=== PATIENT | female | born 1955 | race Caucasian/White ===

== ENCOUNTER 2016-05-15 07:57 | Outpatient (CLI) | payer BC, OTHER ==
[2016-05-15] MEDS ORDERED: BARIUM SULFATE 450 ML ORAL.SUSP ONE (08:26)
[2016-05-15 08:32] LABS: BASOPHILS % (AUTO) 0.6 % (0.0-2.0); EOSINOPHILS # (AUTO) 0.3 K/uL (0.0-0.7); EOSINOPHILS % (AUTO) 3.9 % (0.0-7.0); HEMATOCRIT 41.1 % (37.0-47.0); HEMOGLOBIN 13.7 g/dL (12.0-16.0); LYMPHOCYTES # (AUTO) 2.2 K/uL (0.8-4.8); LYMPHOCYTES % (AUTO) 31.5 % (20.5-51.5); MEAN CORPUSCULAR HEMOGLOBIN 28.1 uug (27.0-31.0); MEAN CORPUSCULAR HGB CONC 34 g/dL (32.0-37.0); MEAN CORPUSCULAR VOLUME 83.8 fL (81.0-99.0); MONOCYTES # (AUTO) 0.5 K/uL (0.1-1.30); NEUTROPHILS # (AUTO) 3.9 K/uL (1.8-8.9); PLATELET COUNT (AUTO) 173 K/uL (150-450); RED CELL DISTRIBUTION WIDTH 12.6 % (11.5-14.5); WHITE BLOOD COUNT (AUTO) 6.9 K/uL (4.0-11.2)
[2016-05-15] MEDS ORDERED: IOHEXOL 300MG/ML 100 ML INFUS..BTL ONE (08:37)
[2016-05-15] MEDS ORDERED: IV NORMAL SALINE 250 ML IV ONE (08:38)
[2016-05-15 08:45] LABS: ALBUMIN 3.9 g/dL (3.4-5.0); BILIRUBIN,TOTAL 0.7 mg/dL (0.2-1.0); CALCIUM 8.8 mg/dL (8.5-10.1); CREATININE 0.9 mg/dL (0.6-1.3); POTASSIUM 3.9 mmol/L (3.5-5.1); TOTAL PROTEIN, SERUM 7.5 g/dL (6.4-8.2)
== END 2016-05-15 23:59 | disposition home or self-care (01) ==
LOC: LAB 07:57
PROVIDERS: ATTEND Family Medicine
DX: N28.1 Cyst of kidney, acquired (principal); K86.89 Other specified diseases of pancreas
CPT/HCPCS: 36415; 74178; 80053; 82150; 83690; 85025; J7050; Q9951; Q9967

== ENCOUNTER 2016-05-28 08:22 | Outpatient (CLI) | payer BC, OTHER | END 2016-05-28 23:59 | disposition home or self-care (01) | LOC: US 08:22 | PROVIDERS: ATTEND Family Medicine | DX: R19.00 Intra-abdominal and pelvic swelling, mass and lump, unspecified site (principal); Z90.710 Acquired absence of both cervix and uterus | CPT/HCPCS: 76856 ==

== ENCOUNTER 2016-06-25 20:15 | Inpatient (IN) | payer BC, OTHER ==
[~2016-06-25] VITALS: Ht 165.1 cm; Wt 79.4 kg
--- NOTE | 2016-06-25 20:33 | NUR ---
PATIENT C/O ABDOMINAL PAIN RADIATING TO BACK WITH CP AND FEVER WITH N/V THAT STARTED 4 DAYS AGO, PT REPORTS SHE RETURNED FROM [facility] 1 WEEK AGO. PT IS ALERT, ORIENTED X 4, NO RESP DISTRESS NOTED OR REPORTED UPON ASSESSMENT... MD AT BEDSIDE...
[2016-06-25] MEDS ORDERED: CEFTRIAXONE 1 G in IV DEXTROSE 5% 50 ML IV ONE (21:00)
[2016-06-25] MEDS ORDERED: MORPHINE SULFATE 2 MG/1 ML DISP.SYRIN IV ONE (21:00)
[2016-06-25] MEDS ORDERED: DOXYCYCLINE HYCLATE IV 100 MG in IV DEXTROSE 5% 250 ML IV ONE (21:00)
[2016-06-25] MEDS ORDERED: ONDANSETRON 4 MG/2 ML VIAL IV ONE (21:00)
[2016-06-25 21:02] LABS: *BILIRUBIN,URIN NEGATIVE (NEGATIVE); *BLOOD, URINE 2+ (NEGATIVE); *COLOR,URINE YELLOW (YELLOW); *KETONES,URINE NEGATIVE (NEGATIVE); *PROTEIN,URINE NEGATIVE (NEGATIVE); *UROBILINOGEN,URINE 0.2 E.U./dl (NORMAL); LEUKOCYTE ESTERASE ,URINE 1+ (NEGATIVE); NITRITE, URINE NEGATIVE (NEGATIVE); UGLUCOSE NEGATIVE (NEGATIVE)
[2016-06-25 21:09] LABS: *CLARITY,URINE SLIGHTLY HAZY (CLEAR)
[2016-06-25 21:10] LABS: BACTERIA,URINE FEW /HPF (NONE SEEN); SQUAMOUS EPITHELIAL CELL,UR MODERATE /HPF (NONE SEEN)
[2016-06-25 21:16] LABS: CREATININE 0.9 mg/dL (0.6-1.3); POTASSIUM 3.3 mmol/L (3.5-5.1)
[2016-06-25] MEDS ORDERED: ONDANSETRON 4 MG/2 ML VIAL ONE (21:16)
[2016-06-25] MEDS ORDERED: MORPHINE SULFATE 4 MG/1 ML DISP.SYRIN ONE (21:16)
[2016-06-25 21:17] LABS: BASOPHILS % (AUTO) 1.2 % (0.0-2.0); EOSINOPHILS % (AUTO) 0.3 % (0.0-7.0); HEMATOCRIT 42.1 % (37-47); HEMOGLOBIN 13.7 G/DL (12.0-16.0); LYMPHOCYTES # (AUTO) 1.2 K/UL (0.8-4.8); LYMPHOCYTES % (AUTO) 30.4 % (20.5-51.5); MEAN CORPUSCULAR HEMOGLOBIN 27.5 UUG (27.0-31.0); MEAN CORPUSCULAR HGB CONC 33 g/dL (32.0-37.0); MEAN CORPUSCULAR VOLUME 84.5 FL (81.0-99.0); MONOCYTES # (AUTO) 0.5 K/UL (0.1-1.30); MONOCYTES % (AUTO) 13.3 % (0.0-11.0); NEUTROPHILS # (AUTO) 2.1 K/UL (1.8-8.9); NEUTROPHILS % (AUTO) 54.8 % (38.5-71.5); PLATELET COUNT (AUTO) 168 K/UL (150-450); RED BLOOD CELL COUNT(AUTO) 4.99 MIL/UL (4.2-5.4); RED CELL DISTRIBUTION WIDTH 12.5 % (11.5-14.5); WHITE BLOOD COUNT (AUTO) 3.8 K/UL (4.0-11.2)
[2016-06-25] MEDS ORDERED: CEFTRIAXONE 1 G VIAL ONE (21:17)
--- NOTE | 2016-06-25 21:19 | NUR ---
TRAIN RESERVATION CLERK AT BEDSIDE, TO TAKE PT FOR SCAN VIA GURNEY, NO RESP DISTRESS NOTED OR REPORTED UPON ASSESSMENT... SON AT SIDE...
[2016-06-25 21:24] LABS: TROPONIN I < 0.017 ng/mL (0.00-0.056)
[2016-06-25] MEDS ORDERED: IV NORMAL SALINE 1000 ML BAG IV ONE (21:30)
[2016-06-25 21:32] LABS: LACTIC ACID 0.7 mmol/L (0.4-2.0)
[2016-06-25 21:33] LABS: ALBUMIN 3.5 g/dL (3.4-5.0); BILIRUBIN,DIRECT 0.1 mg/dL (0.0-0.2); BILIRUBIN,TOTAL 0.3 mg/dL (0.2-1.0); TOTAL PROTEIN, SERUM 7.2 g/dL (6.4-8.2)
[2016-06-25] MEDS ORDERED: HYDROMORPHONE 1 MG/1 ML DISP.SYRIN IV ONE (23:00)
[2016-06-25] MEDS ORDERED: DOXYCYCLINE HYCLATE 100 MG INJ IV ONE (23:08)
[2016-06-25] MEDS ORDERED: HYDROMORPHONE 1 MG/1 ML DISP.SYRIN ONE (23:40)
[2016-06-25] MEDS ORDERED: ASPI-605 PO (23:44)
[2016-06-25] MEDS ORDERED: TRAM50TA2 PO (23:44)
[2016-06-25] MEDS ORDERED: [UNRECOGNIZED DRUG - REMARK] PO (23:44)
[2016-06-26] MEDS ORDERED: ATOR10TA PO (00:10)
[2016-06-26] MEDS ORDERED: IV NS 1000 ML 1,000 ML IV PRN (01:11)
[2016-06-26] MEDS ORDERED: MAGNESIUM HYDROXIDE 30 ML LIQUID UDC PO PRN (01:15)
[2016-06-26] MEDS ORDERED: CEFTRIAXONE 1 G in IV DEXTROSE 5% 50 ML IV SCH (01:15)
[2016-06-26] MEDS ORDERED: Z GUARD REMEDY PASTE 57 GM TUBE TOP PRN (01:15)
[2016-06-26] MEDS ORDERED: ACETAMINOPHEN 325 MG TABLET PO PRN (01:15)
--- NOTE | 2016-06-26 01:26 | NUR ---
Pt. admitted to [facility] , under care of Dr. Claire, [place] List completed, pt alert, oriented x 4, no resp distress noted or reported upon transfer assessment... pt transferred via gurney....
[2016-06-26 01:54] VITALS: BP 107/71
--- NOTE | 2016-06-26 02:00 | NUR ---
RECEIVED PT FROM ER BIB STAFF. PT ALERT AND ORIENTEDX4, IN NO ACUTE DISTRESS. ABLE TO MAKE NEEDS KNOWN. C/O UPPER & LOWER ABDOMINAL PAIN 6/10, TOLERABLE AT THIS TIME PER PT'S REPORT. UNABLE TO AMBULATE AT THIS TIME, PER PT IT INCREASES PAIN LEVEL. IV TO R AC INTACT AND PATENT. NO SOB NOTED/REPORTED. MADE COMFORTABLE. VS STABLE. ALL NEEDS MET AT THIS TIME. CALL LIGHT WITHIN REACH AND SAFETY MEASURES IN PLACE. WILL CONTINUE TO MONITOR.
[2016-06-26] MEDS: IV NS 1000 ML 1,000 ML IV PRN ×3 (02:17→22:57)
[2016-06-26 04:00] VITALS: BP 92/52
[2016-06-26] MEDS: ONDANSETRON 4 MG/2 ML VIAL IV PRN ×2 (05:36→11:15)
[2016-06-26] MEDS: HYDROCODONE/APAP 5-325MG TABLET PO PRN (05:37)
[2016-06-26] MEDS ORDERED: HYDROCODONE/APAP 5-325MG TABLET ONE (05:38)
[2016-06-26] MEDS ORDERED: ONDANSETRON 4 MG/2 ML VIAL ONE (05:39)
--- NOTE | 2016-06-26 05:42 | NUR ---
PT C/O ABD PAIN AND NAUSEA, PRN ZOFRAN AND NORCO GIVEN PER REQUEST PRESCRIBED, REMOVED FROM PYXUS BY COMPOSITION FLOOR LAYER, SEE eMAR. WILL REASSESS. WILL CONTINUE MONITORING.
--- NOTE | 2016-06-26 08:00 | NUR ---
Awake, complaining still with abdominal pain and nausea. IVF infusing
[2016-06-26] MEDS: PANTOPRAZOLE SODIUM 40 MG TABLET.DR PO SCH (08:21)
--- NOTE | 2016-06-26 12:00 | NUR ---
With intermittent nausea. Zofran IV given. Not tolerating diet. will change to diet as tolerated
[2016-06-26 12:06] VITALS: BP 102/62
[2016-06-26] MEDS ORDERED: PANT40TA2 PO (16:07)
[2016-06-26 16:08] VITALS: BP 119/75
--- NOTE | 2016-06-26 16:27 | NUR ---
Diet change to full liquid per patient's request. Dr. Jan lyon
--- NOTE | 2016-06-26 18:21 | NUR ---
Sleeping most of the time. IVF infusing. Full liquid diet served
[2016-06-26 20:00] VITALS: BP 110/64
[2016-06-26] MEDS: CEFTRIAXONE 1 G in IV DEXTROSE 5% 50 ML IV SCH (20:23)
--- NOTE | 2016-06-26 20:30 | NUR ---
TEMP RECHECKED 99.6. WILL CONTINUE TO PROVIDE COOLING MEASURES
--- NOTE | 2016-06-26 23:05 | NUR ---
PATIENT IN BED WITH FAMILY MEMBER AT BEDSIDE. NO ACUTE DISTRESS NOTED. ABLE TO MAKE NEEDS KNOWN. NOTED ELEVATED TEMP 101.7. COOLING MEASURES PROVIDED. WILL ADMINISTER TYLENOL ORDERED. KEPT COMFORTABLE. CALL LIGHT WITHIN REACH. WILL CONTINUE TO MONITOR Addendum: 06/26/16 at 2307 by GUSTAVO MARTINO RN WRONG TIME ACTUAL TIME: 1929
[2016-06-27 04:47] VITALS: BP 103/65
--- NOTE | 2016-06-27 06:20 | NUR ---
SLEPT INTERMITTENTLY DURING THE SHIFT. AFEBRILE. NO ACUTE DISTRESS NOTED. ALL DUE MEDS GIVEN ORDERED. NEEDS ATTENDED. KEPT COMFORTABLE AT ALL TIMES. CALL LIGHT WITHIN REACH
[2016-06-27] MEDS: PANTOPRAZOLE SODIUM 40 MG TABLET.DR PO SCH (06:30)
[2016-06-27 07:43] LABS: BASOPHILS % (AUTO) 0.5 % (0.0-2.0); EOSINOPHILS # (AUTO) 0.1 K/uL (0.0-0.7); EOSINOPHILS % (AUTO) 2.5 % (0.0-7.0); HEMATOCRIT 37.5 % (37-47); HEMOGLOBIN 12.8 G/DL (12.0-16.0); LYMPHOCYTES # (AUTO) 1.1 K/UL (0.8-4.8); LYMPHOCYTES % (AUTO) 36.4 % (20.5-51.5); MEAN CORPUSCULAR HEMOGLOBIN 28.6 UUG (27.0-31.0); MEAN CORPUSCULAR HGB CONC 34 g/dL (32.0-37.0); MONOCYTES # (AUTO) 0.6 K/UL (0.1-1.30); NEUTROPHILS # (AUTO) 1.2 K/UL (1.8-8.9); NEUTROPHILS % (AUTO) 40.6 % (38.5-71.5); PLATELET COUNT (AUTO) 89 K/UL (150-450); RED BLOOD CELL COUNT(AUTO) 4.47 MIL/UL (4.2-5.4); RED CELL DISTRIBUTION WIDTH 12.6 % (11.5-14.5)
[2016-06-27 07:52] LABS: ALBUMIN 2.8 g/dL (3.4-5.0); BILIRUBIN,TOTAL 0.2 mg/dL (0.2-1.0); CALCIUM 7.6 mg/dL (8.5-10.1); CREATININE 0.8 mg/dL (0.6-1.3); MAGNESIUM 1.8 mg/dL (1.8-2.4); PHOSPHOROUS 2.9 mg/dL (2.5-4.9); POTASSIUM 3.7 mmol/L (3.5-5.1); TOTAL PROTEIN, SERUM 6.1 g/dL (6.4-8.2)
[2016-06-27] MEDS: IV NS 1000 ML 1,000 ML IV PRN ×2 (09:10→16:54)
[2016-06-27 09:18] LABS: BAND % (MANUAL) 12 % (0-10); NEUTROPHILS % (MANUAL) 29 % (42-75)
[2016-06-27 09:19] LABS: BLASTS, MANUAL % 11 % (0-0); LYMPHOCYTES % (MANUAL) 35 % (20-40); MONOCYTES % (MANUAL) 13 % (2-10)
[2016-06-27 09:20] LABS: PLATELET ESTIMATE DECREASED
[2016-06-27 11:46] VITALS: BP 124/69
[2016-06-27] MEDS: HYDROCODONE/APAP 5-325MG TABLET PO PRN (15:24)
[2016-06-27 15:30] VITALS: BP 111/63
--- NOTE | 2016-06-27 18:07 | NUR ---
patient alert and ambulatory. stable condition. able to swallow meds no sign of nausea and vomiting. no pain presented. continue to monitor.
[2016-06-27 20:00] VITALS: BP 131/80
--- NOTE | 2016-06-27 20:00 | NUR ---
RECEIVED PATIENT AWAKE IN BED WITH AT BEDSIDE. PATIENT IS A/O X4. C/O MILD DISCOMFORT IN ABDOMEN BUT REFUSED THE NEED FOR ANY PAIN MEDICATION AT THIS TIME. VSS. IVF INFUSING WELL TO RIGHT AC #20 GAUGE. NO RESP. DISTRESS NOTED. DENIES ANY N/V. CALL LIGHT IN REACH. ALL NEEDS ATTENDED. WILL CONTINUE TO MONITOR.
[2016-06-27] MEDS: CEFTRIAXONE 1 G in IV DEXTROSE 5% 50 ML IV SCH (21:02)
[2016-06-28] MEDS: IV NS 1000 ML 1,000 ML IV PRN ×2 (03:45→17:09)
[2016-06-28 04:29] VITALS: BP 121/77
[2016-06-28] MEDS: PANTOPRAZOLE SODIUM 40 MG TABLET.DR PO SCH (06:28)
[2016-06-28] MEDS: HYDROCODONE/APAP 5-325MG TABLET PO PRN (06:35)
--- NOTE | 2016-06-28 06:35 | NUR ---
PATIENT AWAKE IN BED. C/O PAIN. PATIENT GIVEN NORCO 1 TAB PO PRN FOR PAIN. IVF INFUSING WELL. VSS. SLEPT WELL THROUGHOUT THE NIGHT. CALL LIGHT IN REACH. ALL NEEDS ATTENDED. WILL CONTINUE TO MONITOR.
[2016-06-28 06:55] LABS: BASOPHILS % (AUTO) 0.1 % (0.0-2.0); EOSINOPHILS # (AUTO) 0.1 K/uL (0.0-0.7); EOSINOPHILS % (AUTO) 3.4 % (0.0-7.0); HEMATOCRIT 41.3 % (37-47); HEMOGLOBIN 13.5 G/DL (12.0-16.0); LYMPHOCYTES # (AUTO) 1.6 K/UL (0.8-4.8); MEAN CORPUSCULAR HEMOGLOBIN 27.7 UUG (27.0-31.0); MEAN CORPUSCULAR HGB CONC 33 g/dL (32.0-37.0); MEAN CORPUSCULAR VOLUME 84.7 FL (81.0-99.0); MONOCYTES # (AUTO) 0.8 K/UL (0.1-1.30); MONOCYTES % (AUTO) 18.2 % (0.0-11.0); NEUTROPHILS # (AUTO) 1.6 K/UL (1.8-8.9); NEUTROPHILS % (AUTO) 38.3 % (38.5-71.5); PLATELET COUNT (AUTO) 127 K/UL (150-450); RED BLOOD CELL COUNT(AUTO) 4.87 MIL/UL (4.2-5.4); RED CELL DISTRIBUTION WIDTH 12.3 % (11.5-14.5); WHITE BLOOD COUNT (AUTO) 4.1 K/UL (4.0-11.2)
[2016-06-28 06:59] LABS: CALCIUM 8.1 mg/dL (8.5-10.1); CREATININE 0.8 mg/dL (0.6-1.3); POTASSIUM 3.8 mmol/L (3.5-5.1)
[2016-06-28 07:48] LABS: BAND % (MANUAL) 10 % (0-10); BLASTS, MANUAL % 14 % (0-0); EOSINOPHILS % (MANUAL) 4 % (0-8); LYMPHOCYTES % (MANUAL) 26 % (20-40); MONOCYTES % (MANUAL) 7 % (2-10); NEUTROPHILS % (MANUAL) 39 % (42-75)
[2016-06-28 07:49] LABS: PLATELET ESTIMATE SLIGHT DECREASED
--- NOTE | 2016-06-28 08:00 | NUR ---
Discussed plan of care with pt re: proper pain management. Pt agreeable with plan of care. ABD sounds present x 4 quadrants. Call light is within reach.
[2016-06-28 11:30] VITALS: BP 114/73
[2016-06-28 15:14] VITALS: BP 108/64
--- NOTE | 2016-06-28 15:18 | NUR ---
pt diet advanced for lunch with soft. Pt tolerated soft diet. No c/o n/v.
[2016-06-28] MEDS: ASPIRIN EC 81 MG TABLET.DR PO SCH (17:34)
--- NOTE | 2016-06-28 18:18 | NUR ---
Pt denies any c/o n/v and pain.
[2016-06-28 20:00] VITALS: BP 121/70
[2016-06-28] MEDS ORDERED: ATORVASTATIN 10 MG TABLET PO SCH (21:00)
[2016-06-29] MEDS: IV NS 1000 ML 1,000 ML IV PRN ×2 (02:34→11:00)
[2016-06-29 04:56] VITALS: BP 134/83
[2016-06-29] MEDS: PANTOPRAZOLE SODIUM 40 MG TABLET.DR PO SCH (06:19)
--- NOTE | 2016-06-29 06:48 | NUR ---
PT IN BED RESTING, SLEPT MOST SHIFT. DENIES PAIN. DENIES N/V. IN NO ACUTE SIGNS OF DISTRESS. IVF STILL INFUSING. NEEDS RENDERED. CALL LIGHT WITHIN REACH.
[2016-06-29 07:07] LABS: BASOPHILS % (AUTO) 0.3 % (0.0-2.0); EOSINOPHILS # (AUTO) 0.1 K/uL (0.0-0.7); EOSINOPHILS % (AUTO) 2.6 % (0.0-7.0); HEMATOCRIT 39.8 % (37-47); HEMOGLOBIN 13.2 G/DL (12.0-16.0); LYMPHOCYTES # (AUTO) 1.7 K/UL (0.8-4.8); LYMPHOCYTES % (AUTO) 35.3 % (20.5-51.5); MEAN CORPUSCULAR HGB CONC 33 g/dL (32.0-37.0); MEAN CORPUSCULAR VOLUME 84.6 FL (81.0-99.0); MONOCYTES # (AUTO) 0.9 K/UL (0.1-1.30); MONOCYTES % (AUTO) 17.9 % (0.0-11.0); NEUTROPHILS # (AUTO) 2.2 K/UL (1.8-8.9); NEUTROPHILS % (AUTO) 43.9 % (38.5-71.5); RED BLOOD CELL COUNT(AUTO) 4.71 MIL/UL (4.2-5.4); RED CELL DISTRIBUTION WIDTH 12.6 % (11.5-14.5); WHITE BLOOD COUNT (AUTO) 4.9 K/UL (4.0-11.2)
[2016-06-29 07:09] LABS: CREATININE 0.7 mg/dL (0.6-1.3); POTASSIUM 3.3 mmol/L (3.5-5.1)
[2016-06-29 07:19] LABS: PLATELET COUNT (AUTO) 160 K/UL (150-450)
--- NOTE | 2016-06-29 07:46 | NUR ---
RESTING IN BED WITH EYES CLOSED NO SINGS OF ACUTE PAIN, NAUSEA AND VOMITING. IVF AT 125 ML/HR WITH FULL LIQUID
[2016-06-29 08:43] LABS: BAND % (MANUAL) 2 % (0-10); EOSINOPHILS % (MANUAL) 1 % (0-8); LYMPHOCYTES % (MANUAL) 45 % (20-40); MONOCYTES % (MANUAL) 8 % (2-10); NEUTROPHILS % (MANUAL) 37 % (42-75)
[2016-06-29 08:45] LABS: PLATELET ESTIMATE ADEQU
[2016-06-29 08:53] LABS: REACTIVE LYMPHOCYTES 7 % (0-0)
[2016-06-29] MEDS: ASPIRIN EC 81 MG TABLET.DR PO SCH (08:56)
[2016-06-29] MEDS ORDERED: POTASSIUM CHLORIDE 50 ML IV SCH (10:30)
[2016-06-29 11:40] VITALS: BP 126/63
[2016-06-29] MEDS ORDERED: POTASSIUM CHLORIDE 10 MEQ CAPSULE.SA PO ONE (11:45)
--- NOTE | 2016-06-29 12:00 | NUR ---
SEEN BY DR RUIZ WITH DISCHARGE ORDER
--- NOTE | 2016-06-29 13:42 | NUR ---
DISCHARGED HOME STABLE WITH HOME MEDS ACCOMPANIED BY SON
== END 2016-06-29 13:45 | disposition home or self-care (01) | DRG 392 ==
LOC: ER 20:16 → MED 06-26 01:14
PROVIDERS: ADMIT Internal Medicine; ATTEND Internal Medicine
DX: A08.4 Viral intestinal infection, unspecified (principal); N39.0 Urinary tract infection, site not specified; E78.5 Hyperlipidemia, unspecified; I10 Essential (primary) hypertension; E87.6 Hypokalemia; K21.9 Gastro-esophageal reflux disease without esophagitis; M19.90 Unspecified osteoarthritis, unspecified site
CPT/HCPCS: 36415; 70030-TC; 71010; 83605; 83735; 84100; 85025; 85730; 87040; 87086; 93005; A4663; J0696; J1170; J2270; J2405; J3480; J3490; J7030; J7050; J7060

== ENCOUNTER 2016-08-31 08:44 | Outpatient (CLI) | payer BC, OTHER ==
[~2016-08-31 08:44] MED LIST: ASPI-605 PO; ATOR10TA PO; PANT40TA2 PO; TRAM50TA2 PO
[2016-08-31 09:33] LABS: BASOPHILS % (AUTO) 0.4 % (0.0-2.0); EOSINOPHILS # (AUTO) 0.2 K/uL (0.0-0.7); EOSINOPHILS % (AUTO) 2.3 % (0.0-7.0); HEMATOCRIT 40.4 % (37-47); HEMOGLOBIN 13.8 G/DL (12.0-16.0); LYMPHOCYTES # (AUTO) 1.9 K/UL (0.8-4.8); LYMPHOCYTES % (AUTO) 23.3 % (20.5-51.5); MEAN CORPUSCULAR HEMOGLOBIN 28.9 UUG (27.0-31.0); MEAN CORPUSCULAR HGB CONC 34 g/dL (32.0-37.0); MEAN CORPUSCULAR VOLUME 84.5 FL (81.0-99.0); MONOCYTES # (AUTO) 0.4 K/UL (0.1-1.30); MONOCYTES % (AUTO) 5.1 % (0.0-11.0); NEUTROPHILS # (AUTO) 5.8 K/UL (1.8-8.9); NEUTROPHILS % (AUTO) 68.9 % (38.5-71.5); PLATELET COUNT (AUTO) 193 K/UL (150-450); RED BLOOD CELL COUNT(AUTO) 4.78 MIL/UL (4.2-5.4); WHITE BLOOD COUNT (AUTO) 8.3 K/UL (4.0-11.2)
[2016-08-31 09:53] LABS: BILIRUBIN,TOTAL 0.4 mg/dL (0.2-1.0); CREATININE 0.9 mg/dL (0.6-1.3); TOTAL PROTEIN, SERUM 7.7 g/dL (6.4-8.2)
== END 2016-08-31 23:59 | disposition home or self-care (01) ==
LOC: LAB 08:44
PROVIDERS: ATTEND Family Medicine
DX: K86.2 Cyst of pancreas (principal)
CPT/HCPCS: 36415; 83690; 85025; 86301

== ENCOUNTER 2016-10-27 11:08 | Day surgery (SDC) | payer BC, OTHER ==
[2016-10-27] MEDS ORDERED: LIDOCAINE HCL 1% 20 ML VIAL MC ONE (11:09)
[2016-10-27] MEDS ORDERED: PROPOFOL 200 MG/20 ML BOTTLE IV ONE (11:09)
[2016-10-27] MEDS ORDERED: IV LACTATED RINGERS SOLUTION 1,000 ML BAG IV ONE (11:09)
[2016-10-27 11:44] LABS: POTASSIUM 4.1 mmol/L (3.5-5.1)
[2016-10-27 11:50] LABS: BILIRUBIN,TOTAL 0.6 mg/dL (0.2-1.0); TOTAL PROTEIN, SERUM 7.9 g/dL (6.4-8.2)
[2016-10-27 11:56] LABS: *BILIRUBIN,URIN NEGATIVE (NEGATIVE); *BLOOD, URINE 2+ (NEGATIVE); *CLARITY,URINE CLEAR (CLEAR); *COLOR,URINE YELLOW (YELLOW); *KETONES,URINE NEGATIVE (NEGATIVE); *PROTEIN,URINE NEGATIVE (NEGATIVE); *UROBILINOGEN,URINE 0.2 E.U./dl (NORMAL); LEUKOCYTE ESTERASE ,URINE NEGATIVE (NEGATIVE); NITRITE, URINE NEGATIVE (NEGATIVE); PH,URINE 5.5 (5.0-8.0); UGLUCOSE NEGATIVE (NEGATIVE)
[2016-10-27 12:06] LABS: BACTERIA,URINE FEW /HPF (NONE SEEN)
[2016-10-27 12:07] LABS: MUCUS,URINE MODERATE /LPF (0-FEW); SQUAMOUS EPITHELIAL CELL,UR MODERATE /HPF (NONE SEEN)
[2016-10-27 12:24] LABS: BASOPHILS % (AUTO) 0.4 % (0.0-2.0); EOSINOPHILS # (AUTO) 0.2 K/uL (0.0-0.7); EOSINOPHILS % (AUTO) 2.2 % (0.0-7.0); HEMATOCRIT 43.6 % (37-47); HEMOGLOBIN 14.4 G/DL (12.0-16.0); LYMPHOCYTES # (AUTO) 2.8 K/UL (0.8-4.8); LYMPHOCYTES % (AUTO) 33.1 % (20.5-51.5); MEAN CORPUSCULAR HEMOGLOBIN 28.2 UUG (27.0-31.0); MEAN CORPUSCULAR HGB CONC 33 g/dL (32.0-37.0); MEAN CORPUSCULAR VOLUME 85.3 FL (81.0-99.0); MONOCYTES # (AUTO) 0.6 K/UL (0.1-1.30); MONOCYTES % (AUTO) 6.5 % (0.0-11.0); NEUTROPHILS # (AUTO) 4.9 K/UL (1.8-8.9); NEUTROPHILS % (AUTO) 57.8 % (38.5-71.5); PLATELET COUNT (AUTO) 182 K/UL (150-450); RED BLOOD CELL COUNT(AUTO) 5.11 MIL/UL (4.2-5.4); WHITE BLOOD COUNT (AUTO) 8.5 K/UL (4.0-11.2)
[2016-10-27] MEDS ORDERED: ACETAMINOPHEN 325 MG TABLET ONE (14:20)
== END 2016-10-27 14:40 | disposition home or self-care (01) ==
LOC: DS 11:08
PROVIDERS: ATTEND Internal Medicine Gastroenterology
DX: K29.60 Other gastritis without bleeding (principal); K64.9 Unspecified hemorrhoids; E78.5 Hyperlipidemia, unspecified
CPT/HCPCS: 36415; 85025; 85730; 93005; A4217; A4663; J3490; J7120

== ENCOUNTER 2016-12-03 11:32 | Outpatient (CLI) | payer BC, OTHER ==
[2016-12-03 12:57] LABS: BASOPHILS % (AUTO) 0.5 % (0.0-2.0); EOSINOPHILS # (AUTO) 0.2 K/uL (0.0-0.7); HEMATOCRIT 41.7 % (37-47); HEMOGLOBIN 13.8 G/DL (12.0-16.0); LYMPHOCYTES # (AUTO) 2.5 K/UL (0.8-4.8); LYMPHOCYTES % (AUTO) 30.7 % (20.5-51.5); MEAN CORPUSCULAR HEMOGLOBIN 28.5 UUG (27.0-31.0); MEAN CORPUSCULAR HGB CONC 33 g/dL (32.0-37.0); MONOCYTES # (AUTO) 0.6 K/UL (0.1-1.30); MONOCYTES % (AUTO) 7.4 % (0.0-11.0); NEUTROPHILS # (AUTO) 4.9 K/UL (1.8-8.9); NEUTROPHILS % (AUTO) 59.4 % (38.5-71.5); PLATELET COUNT (AUTO) 173 K/UL (150-450); RED BLOOD CELL COUNT(AUTO) 4.85 MIL/UL (4.2-5.4); WHITE BLOOD COUNT (AUTO) 8.2 K/UL (4.0-11.2)
[2016-12-03 13:14] LABS: BILIRUBIN,TOTAL 0.5 mg/dL (0.2-1.0); CREATININE 0.9 mg/dL (0.6-1.3); POTASSIUM 3.8 mmol/L (3.5-5.1); TOTAL PROTEIN, SERUM 7.9 g/dL (6.4-8.2)
[2016-12-03 13:25] LABS: THYROID STIMULATING HORMONE 1.476 mIU/mL (0.358-3.740)
== END 2016-12-03 23:59 | disposition home or self-care (01) ==
LOC: LAB 11:32
PROVIDERS: ATTEND Family Medicine
DX: I10 Essential (primary) hypertension (principal); E55.9 Vitamin D deficiency, unspecified
CPT/HCPCS: 36415; 82306; 84443; 85025

== ENCOUNTER 2017-04-01 08:38 | Outpatient (CLI) | payer BC, OTHER ==
[2017-04-01 09:10] LABS: BASOPHILS # (AUTO) 0.1 K/uL (0.0-8.0); BASOPHILS % (AUTO) 0.9 % (0.0-2.0); EOSINOPHILS # (AUTO) 0.2 K/uL (0.0-0.7); EOSINOPHILS % (AUTO) 2.2 % (0.0-7.0); HEMATOCRIT 38.7 % (31.2-41.9); HEMOGLOBIN 13.4 g/dL (10.9-14.3); LYMPHOCYTES # (AUTO) 2.4 K/uL (20.0-40.0); LYMPHOCYTES % (AUTO) 33.5 % (20.5-51.5); MEAN CORPUSCULAR HGB CONC 35 g/dL (32.3-35.6); MEAN CORPUSCULAR VOLUME 84.1 fL (75.5-95.3); MONOCYTES # (AUTO) 0.6 K/uL (2.0-10.0); MONOCYTES % (AUTO) 7.7 % (0.0-11.0); NEUTROPHILS # (AUTO) 4.1 K/uL (1.8-8.9); NEUTROPHILS % (AUTO) 55.7 % (38.5-71.5); PLATELET COUNT (AUTO) 162 K/uL (179-408); WHITE BLOOD COUNT (AUTO) 7.3 K/uL (3.8-11.8)
[2017-04-01 09:23] LABS: BILIRUBIN,TOTAL 0.8 mg/dL (0.2-1.0); TOTAL PROTEIN, SERUM 7.3 g/dL (6.4-8.2)
[2017-04-01 09:31] LABS: THYROID STIMULATING HORMONE 1.837 mIU/mL (0.358-3.740)
[2017-04-01 10:23] LABS: *BILIRUBIN,URIN NEGATIVE (NEGATIVE); *BLOOD, URINE 2+ (NEGATIVE); *CLARITY,URINE CLOUDY (CLEAR); *COLOR,URINE YELLOW (YELLOW); *KETONES,URINE NEGATIVE (NEGATIVE); *PROTEIN,URINE NEGATIVE (NEGATIVE); *UROBILINOGEN,URINE 0.2 E.U./dl (NORMAL); LEUKOCYTE ESTERASE ,URINE 2+ (NEGATIVE); NITRITE, URINE NEGATIVE (NEGATIVE); PH,URINE 5.5 (5.0-8.0); UGLUCOSE NEGATIVE (NEGATIVE)
[2017-04-01 10:30] LABS: BACTERIA,URINE FEW /HPF (NONE SEEN); SQUAMOUS EPITHELIAL CELL,UR MODERATE /HPF (NONE SEEN)
== END 2017-04-01 23:59 | disposition home or self-care (01) ==
LOC: LAB 08:38
PROVIDERS: ATTEND Family Medicine
DX: E78.2 Mixed hyperlipidemia (principal)
CPT/HCPCS: 82306; 84443; 85025

== ENCOUNTER 2017-04-23 11:10 | Outpatient (CLI) | payer BC, OTHER ==
[2017-04-23 12:13] LABS: *BILIRUBIN,URIN NEGATIVE (NEGATIVE); *BLOOD, URINE 2+ (NEGATIVE); *CLARITY,URINE CLEAR (CLEAR); *COLOR,URINE YELLOW (YELLOW); *KETONES,URINE TRACE (NEGATIVE); *PROTEIN,URINE NEGATIVE (NEGATIVE); *UROBILINOGEN,URINE 0.2 E.U./dl (NORMAL); LEUKOCYTE ESTERASE ,URINE 1+ (NEGATIVE); NITRITE, URINE NEGATIVE (NEGATIVE); UGLUCOSE NEGATIVE (NEGATIVE)
[2017-04-23 12:55] LABS: BACTERIA,URINE MANY /HPF (NONE SEEN); SQUAMOUS EPITHELIAL CELL,UR MANY /HPF (NONE SEEN); YEAST,URINE FEW /HPF (NONE SEEN)
== END 2017-04-23 23:59 | disposition home or self-care (01) ==
LOC: LAB 11:10
PROVIDERS: ATTEND Family Medicine
DX: R31.9 Hematuria, unspecified (principal)
CPT/HCPCS: 87086

== ENCOUNTER → 2017-05-30 | Outpatient (CLI) | payer BC, OTHER ==
[2017-05-30 07:45] LABS: POTASSIUM 3.5 mmol/L (3.5-5.1)
== END | disposition home or self-care (01) ==
LOC: LAB 05:14
PROVIDERS: ATTEND Family Medicine
DX: R31.9 Hematuria, unspecified (principal)
CPT/HCPCS: 36415

== ENCOUNTER → 2017-06-03 | Outpatient (CLI) | payer BC, OTHER ==
[~2017-06-03] MED LIST changes: +IOHEXOL 300MG/ML 100 ML INFUS..BTL ONE; +IV NORMAL SALINE 100 ML ONE; +SWABABLE VALVE TRANSFER SET EA MC ONE
== END | disposition home or self-care (01) ==
LOC: CT 09:27
PROVIDERS: ATTEND Family Medicine
DX: N28.1 Cyst of kidney, acquired (principal); K86.89 Other specified diseases of pancreas; M43.16 Spondylolisthesis, lumbar region; M48.061 Spinal stenosis, lumbar region without neurogenic claudication; J98.11 Atelectasis; J84.10 Pulmonary fibrosis, unspecified
CPT/HCPCS: 74178; J3490; Q9967

== ENCOUNTER → 2017-09-26 | Outpatient (CLI) | payer BC, OTHER ==
[~2017-09-26] MED LIST changes: -IOHEXOL 300MG/ML 100 ML INFUS..BTL ONE; -IV NORMAL SALINE 100 ML ONE; -SWABABLE VALVE TRANSFER SET EA MC ONE
[2017-09-26 10:50] LABS: BASOPHILS % (AUTO) 0.7 % (0.0-2.0); EOSINOPHILS # (AUTO) 0.2 K/uL (0.0-0.7); EOSINOPHILS % (AUTO) 2.8 % (0.0-7.0); HEMATOCRIT 40.6 % (31.2-41.9); HEMOGLOBIN 13.8 g/dL (10.9-14.3); LYMPHOCYTES % (AUTO) 35.2 % (20.5-51.5); MEAN CORPUSCULAR HGB CONC 34 g/dL (32.3-35.6); MEAN CORPUSCULAR VOLUME 88.2 fL (75.5-95.3); MONOCYTES # (AUTO) 0.5 K/uL (2.0-10.0); NEUTROPHILS # (AUTO) 3.1 K/uL (1.8-8.9); NEUTROPHILS % (AUTO) 53.3 % (38.5-71.5); PLATELET COUNT (AUTO) 157 K/uL (179-408); WHITE BLOOD COUNT (AUTO) 5.7 K/uL (3.8-11.8)
[2017-09-26 11:01] LABS: BILIRUBIN,TOTAL 0.7 mg/dL (0.2-1.0); CREATININE 0.9 mg/dL (0.6-1.3); POTASSIUM 3.5 mmol/L (3.5-5.1); TOTAL PROTEIN, SERUM 7.4 g/dL (6.4-8.2)
[2017-09-26 11:23] LABS: THYROID STIMULATING HORMONE 1.87 mIU/mL (0.358-3.740)
== END | disposition home or self-care (01) ==
LOC: LAB 05:07
PROVIDERS: ATTEND Family Medicine
DX: I10 Essential (primary) hypertension (principal); E55.9 Vitamin D deficiency, unspecified; Z79.899 Other long term (current) drug therapy
CPT/HCPCS: 36415; 82306; 84443; 85025